=== PATIENT | female | born 1970 | race Caucasian/White ===

== ENCOUNTER 2023-08-31 02:04 | Emergency (ER) | payer BC, OTHER ==
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
[2023-08-31] MEDS: BACITRACIN OINT 1 EACH PACKET TOPICAL ONE (03:51)
[2023-08-31 03:57] VITALS: BP 149/108; PULSE 92; RESP 17; TEMP 98
[2023-08-31 09:09] LABS: Hepatitis B Surface Antigen Nonreactive (Nonreactive); Hepatitis C IgG Antibody Nonreactive (Nonreactive)
[2023-08-31 13:16] LABS: HIV 2 AB Non-Reactive (Non-Reactive); HIV AB P24 Non-Reactive (Non-Reactive); HIV P24 AG Non-Reactive (Non-Reactive)
== END 2023-08-31 03:58 | disposition home or self-care (01) ==
LOC: EC 02:04
DX: S00.31XA Abrasion of nose, initial encounter (principal); Z88.8 Allergy status to other drugs, medicaments and biological substances; Y04.0XXA Assault by unarmed brawl or fight, initial encounter; Y99.0 Civilian activity done for income or pay
CPT/HCPCS: 36415; 86704; 86706; 86803; 87340; 87390; 99283

== ENCOUNTER → 2023-10-22 | Outpatient (CLI) | payer MEDICAID ==
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
--- NOTE | 2023-10-24 08:52 | MM ---
Reason for Exam: Screening (asymptomatic). Baseline mammogram. Patient History: Menarche at age 11. Postmenopausal. Risk Values: Rachael 5 year model risk: 0.8%. NCI Lifetime model risk: 6.9%. Prior Study Comparison: Patient's first Mammogram. Tissue Density: There are scattered areas of fibroglandular density. Findings: Analyzed By CAD. There is no suspicious group of microcalcifications or new suspicious mass in either breast. Overall Assessment: Benign, BI-RAD 2 Management: Screening Mammogram of both breasts in 1 year. . Patient should continue monthly self-breast exams. A clinical breast exam by your physician is recommended on an annual basis. This exam should not preclude additional follow-up of suspicious palpable abnormalities. Note on Rachael scores and lifetime risk: 1. A Rachael score greater than 3% is considered moderate risk. If this is the case, consider specialist referral to assess eligibility for a risk reducing agent. 2. If overall lifetime risk for the development of breast cancer is 20% or higher, the patient may qualify for future screening with alternating mammogram and breast MRI. Electronically signed and approved by: Eb Ricks M.D. Radiologis
== END | disposition home or self-care (01) ==
LOC: RADMAMWWP 15:33
PROVIDERS: ATTEND Family Medicine
DX: Z12.31 Encounter for screening mammogram for malignant neoplasm of breast (principal); R92.323 Mammographic fibroglandular density, bilateral breasts; M85.89 Other specified disorders of bone density and structure, multiple sites; Z78.0 Asymptomatic menopausal state
CPT/HCPCS: 77063; 77067; 77080

== ENCOUNTER 2024-01-18 21:17 | Observation (INO) | payer MEDICAID, OTHER ==
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
[2024-01-18] MEDS: SODIUM CHLORIDE 0.9% 1,000 ML IV STA (22:31)
[2024-01-18] MEDS: ACETAMINOPHEN IV (For NPO) 1,000 MG in EMPTY BAG 1 BAG IVPB STA (22:32)
[2024-01-18] MEDS: LORazepam 2 MG/ML INJ IV STA (22:33)
[2024-01-18 22:51] LABS: Basophils % (A) 0 %; Eosinophils # (A) 0.1 k/uL (0-0.7); Eosinophils % (A) 2 %; HCT 37.6 % (34.0-46.0); HGB 12.7 gm/dL (11.4-16.0); Lymphocytes # (A) 1.8 k/uL (1.0-4.8); Lymphocytes % (A) 39 %; MCH 32.5 pg (25.0-35.0); MCHC 33.7 g/dL (31.0-37.0); MCV 96.3 fL (80.0-100.0); Mean Platelet Volume 8.6; Monocytes # (A) 0.2 k/uL (0-1.0); Monocytes % (A) 5 %; Neutrophils # (A) 2.5 k/uL (1.3-7.7); Neutrophils % (A) 53 %; Platelet Count 314 k/uL (150-450); RDW 12.9 % (11.5-15.5); WBC 4.7 k/uL (3.8-10.6)
[2024-01-18 23:09] LABS: INR 0.9 (<1.2); Partial Thromboplastin Time 23.3 sec (22.0-30.0); Prothrombin Time 10.2 sec (10.0-12.5)
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
[2024-01-19 00:47] LABS: ALT 21 U/L (4-34); African American GFR (CKD) >90 (>60 ml/min/1.73 sqM); Anion Gap 5 mmol/L; Blood Urea Nitrogen 16 mg/dL (7-17); Calcium 8.9 mg/dL (8.4-10.2); Carbon Dioxide 25 mmol/L (22-30); Chloride 109 mmol/L (98-107); Glucose 96 mg/dL (74-99); Non-African American GFR(CKD) >90 (>60 ml/min/1.73 sqM); Sodium 139 mmol/L (137-145); Total Bilirubin 1.1 mg/dL (0.2-1.3)
[2024-01-19 01:13] LABS: Potassium 4.9 mmol/L (3.5-5.1)
[2024-01-19 01:14] LABS: AST 39 U/L (14-36); Albumin 4.3 g/dL (3.5-5.0); Alkaline Phosphatase 46 U/L (38-126); Total Protein 7.2 g/dL (6.3-8.2)
[2024-01-19] MEDS ORDERED: MAG HYDROX/AL HYDROX/SIMETH 30 ML CUP PO PRN (01:36)
[2024-01-19] MEDS ORDERED: CALCIUM CARBONATE 500 MG CHEWABLE PO PRN (01:36)
[2024-01-19] MEDS ORDERED: HYDROmorphone 1 MG/ML 1 ML SYRINGE IVP PRN (01:36)
[2024-01-19] MEDS ORDERED: ACETAMINOPHEN TAB 325 MG TAB PO PRN (01:36)
[2024-01-19] MEDS ORDERED: NALOXONE 0.4 MG/ML 1 ML VIAL IV PRN (01:36)
[2024-01-19] MEDS ORDERED: ALPRAZolam 0.25 MG TAB PO PRN (01:36)
[2024-01-19] MEDS ORDERED: MELATONIN 3 MG TABLET PO PRN (01:36)
[2024-01-19] MEDS: LIDOCAINE VISCOUS 2% 15 ML CUP PO ONE (02:21)
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
[2024-01-19 07:48] VITALS: BP 119/80; PULSE 59; RESP 17; TEMP 97.6
[2024-01-19] MEDS: traMADol 50 MG TAB PO PRN (07:48)
[2024-01-19] MEDS: KETOROLAC 15 MG/ML 1 ML VIAL IVP PRN (10:24)
[2024-01-19] MEDS: ENOXAPARIN 40 MG/0.4 ML SYRINGE SQ SCH (10:28)
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
== END 2024-01-19 14:23 | disposition home or self-care (01) ==
LOC: EC 21:17 → 6NMEDSUR 01-19 01:36 → 5NMEDONC 01-19 04:52
PROVIDERS: ADMIT Internal Medicine; ATTEND Internal Medicine
DX: S17.9XXA Crushing injury of neck, part unspecified, initial encounter (principal); T71.9XXA Asphyxiation due to unspecified cause, initial encounter; F90.9 Attention-deficit hyperactivity disorder, unspecified type; Y04.8XXA Assault by other bodily force, initial encounter; Z86.711 Personal history of pulmonary embolism
CPT/HCPCS: 96372; 96375 ×2; 96365; 99285; 36415; 93005; 80053; 84484; 85025; 85610; 85730; 71046; 70450; 70498; G0378; J2060; J1650; J0131; J1885; Q9967

== ENCOUNTER → 2024-01-24 | Outpatient (CLI) | payer OTHER ==
--- NOTE | 2024-01-24 11:28 | XR ---
EXAMINATION TYPE: XR lumbar spine 2 or 3V DATE OF EXAM: 01/24/2024 11:13 AM COMPARISON: None CLINICAL INDICATION: Female, 53 years old with history of S30.0XXA CONTUSION OF LOWER BACK AND PELVIS , INITI; pain TECHNIQUE: XR lumbar spine 2 or 3V - Frontal, lateral and coned in L5-S1 lateral views of the spine. FINDINGS: No evidence of any acute osseous pathology. No evidence of loss of vertebral body height i s seen. There is normal alignment of the lumbar vertebral bodies. Scattered disc space narrowing. Mul tilevel marginal osteophyte formation throughout the visualized spine. There is facet joint arthropat hy throughout the spine. Scattered at least mild neural foraminal stenosis. IMPRESSION: 1. No acute fracture. 2. Mild multilevel disc degeneration. [facility], , 01/24/2024 11:26 AM
== END | disposition home or self-care (01) ==
LOC: RADXRMAIN 10:45
PROVIDERS: ATTEND Emergency Medicine
DX: S30.0XXA Contusion of lower back and pelvis, initial encounter (principal); M51.369 Other intervertebral disc degeneration, lumbar region without mention of lumbar back pain or lower extremity pain
CPT/HCPCS: 72100

== ENCOUNTER → 2024-02-04 | Outpatient (CLI) | payer OTHER ==
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
== END | disposition home or self-care (01) ==
LOC: RADMRIMAIN 20:00
PROVIDERS: ATTEND Emergency Medicine
DX: S13.4XXD Sprain of ligaments of cervical spine, subsequent encounter (principal); S00.83XD Contusion of other part of head, subsequent encounter; G44.301 Post-traumatic headache, unspecified, intractable; S30.0XXD Contusion of lower back and pelvis, subsequent encounter
CPT/HCPCS: 70551

== ENCOUNTER → 2024-04-21 | Outpatient (CLI) | payer OTHER ==
--- NOTE | 2024-04-21 13:46 | XR ---
EXAMINATION TYPE: XR Hip RT and AP Pelvis DATE OF EXAM: 04/21/2024 1:40 PM INDICATION: Patient age:Female; 53 years old; Reason for study: S30.0XXD; PHH. pain COMPARISON: Lumbar spine radiograph 01/24/2024 TECHNIQUE: The right hip was examined in the frontal and lateral projections and a AP pelvis. FINDINGS: No evidence of any acute osseous pathology, joint dislocation, or soft tissue swelling. SI joints appear intact. Pelvic phleboliths. IMPRESSION: No acute osseous pathology. [facility], , 04/21/2024 1:44 PM
== END | disposition home or self-care (01) ==
LOC: RADXRMAIN 13:14
PROVIDERS: ATTEND Emergency Medicine
DX: S30.0XXD Contusion of lower back and pelvis, subsequent encounter (principal)
CPT/HCPCS: 73502